=== PATIENT | female | born 1950 | race Caucasian/White ===

== ENCOUNTER 2017-01-27 10:54 | Inpatient (IN) | payer OTHER ==
[~2017-01-27] VITALS: Ht 149.9 cm; Wt 55.0 kg
[2017-01-27 11:17] LABS: ADD SCAN DIFF NO
[2017-01-27] MEDS ORDERED: ASPIRIN 81 MG TAB PO ONE (11:30)
[2017-01-27] MEDS ORDERED: NITROGLYCERIN (SL) 0.4 MG TAB SL ONE (11:30)
--- NOTE | 2017-01-27 11:32 | RADRPT ---
PROCEDURE: XR Chest 1 View. CLINICAL INDICATION: Chest pain TECHNIQUE: AP view of the chest was obtained. COMPARISON: None. FINDINGS: The cardiomediastinal silhouette is within normal limits. Subsegmental atelectasis is noted in the b ilateral lower lobes. No consolidations are identified. No pneumothorax is seen. The osseous struc tures are osteopenic, but appear intact. Stable focal, patchy sclerosis in the proximal right humer us is observed and may reflect an enchondroma or the sequelae of old bony infarct. IMPRESSION: Subsegmental atelectasis in the bilateral lower lobes. RPTAT: AA .Harish Rosales MD, MD Date Time Electronically viewed and signed by .Harish Rosales MD, on 01/27/2017 11:32 .P/
[2017-01-27 11:34] LABS: BASOPHILS % 0.4 % (0.0-2.0); EOSINOPHILS # 0.1 10^3/ul (0.0-0.5); EOSINOPHILS % 1.7 % (0.0-7.0); HEMATOCRIT 38.1 % (37.0-47.0); LYMPHOCYTES # 1.8 10^3/ul (0.8-2.9); LYMPHOCYTES % 35.2 % (15.0-51.0); MEAN CORPUSCULAR HEMOGLOBIN 32.3 pg (29.0-33.0); MEAN CORPUSCULAR HGB CONC 34.1 g/dl (32.0-37.0); MEAN CORPUSCULAR VOLUME 94.8 fl (82.0-101.0); MEAN PLATELET VOLUME 10.4 fl (7.4-10.4); MONOCYTE # 0.7 10^3/ul (0.3-0.9); MONOCYTES % 12.6 % (0.0-11.0); NEUTROPHIL # 2.6 10^3/ul (1.6-7.5); NEUTROPHILS % 49.9 % (39.0-77.0); PLATELET COUNT 157 10^3/UL (140-415); RED BLOOD COUNT 4.02 10^6/ul (4.20-5.40); RED CELL DISTRIBUTION WIDTH 12.4 % (11.5-14.5); WHITE BLOOD COUNT 5.2 10^3/ul (4.8-10.8)
[2017-01-27 11:38] VITALS: TEMP 98
[2017-01-27 11:52] LABS: PARTIAL THROMBOPLASTIN TIME 31.5 Sec (25.0-35.0); PROTIME 13.2 Sec (12.2-14.2)
[2017-01-27 12:01] LABS: CHLORIDE 99 mmol/L (97-110)
[2017-01-27 12:02] LABS: POTASSIUM 3.8 mmol/L (3.5-5.1); SODIUM 133 mmol/L (135-144)
[2017-01-27 12:04] LABS: CREATININE 0.73 mg/dl (0.44-1.00)
[2017-01-27 12:05] LABS: ANION GAP 14 (8-16); BLOOD UREA NITROGEN 12 mg/dl (7-20); CALCIUM 8.4 mg/dl (8.4-10.2); CARBON DIOXIDE 24 mmol/L (21-31); GLUCOSE 62 mg/dl (70-220)
[2017-01-27 12:20] LABS: B-TYPE NATRIURETIC PEPTIDE 75 PG/ML (0-125); TROPONIN-I < 0.012 ng/ml (0.00-0.12)
[2017-01-27] MEDS ORDERED: ATOR20TA38 PO (12:29)
[2017-01-27] MEDS ORDERED: SERT-165 PO (12:30)
[2017-01-27] MEDS ORDERED: IOHEXOL 100 ML ONE (13:55)
[2017-01-27] MEDS ORDERED: SOD CHLORIDE 0.9% 100 ML ONE (13:55)
--- NOTE | 2017-01-27 15:03 | RADRPT ---
PROCEDURE: CTA Chest, Abdomen and Pelvis with intravenous contrast CLINICAL INDICATION: Chest and leg pain, abdominal aortic aneurysm. TECHNIQUE: CTA of the chest, abdomen, and pelvis was performed on a multidetector scanner followin g the uncomplicated administration of 100 cc Omnipaque 350 IV contrast. Coronal, sagittal and 3-D images were obtained from the axial data set. One or more of the following dose reduction techniques were used: automated exposure control, adjustment of the mA and/or kV according to patient size, u se of iterative reconstruction technique. CTDI = 6.93 mGy. DLP = 484.26 mGy-cm. COMPARISON: None available FINDINGS: CTA chest: The heart size is borderline enlarged, without pericardial effusion. There is no thoracic aortic an eurysm or dissection. Visualized portions of the great vessels are patent without significant steno sis or occlusion. No pulmonary embolism is identified. There is no mediastinal, hilar, axillary or supraclavicular lymphadenopathy. There is minimal bibasilar atelectasis. No acute infiltrate, pleural effusion, pulmonary edema or p neumothorax is identified. The central tracheobronchial tree is clear. No pulmonary nodule or mass is identified. CTA abdomen and pelvis: There is no abdominal aortic aneurysm or dissection. Celiac artery, SMA, EVER and bilateral renal ar teries are patent without significant stenosis. Bilateral common iliac artery aneurysms are noted, with maximal diameters of 2.1 cm on the right and 3.8 cm on the left. Distally, the iliac arteries and visualized portions of the femoral arteries are patent without significant stenosis. Liver, gallbladder, biliary tree, pancreas, spleen, adrenal glands and kidneys are unremarkable. No urolithiasis or obstructive uropathy is identified. The stomach is partially collapsed, but appear s grossly unremarkable. No retroperitoneal or flo hepatis lymphadenopathy is identified. There is no bowel obstruction, free intraperitoneal air or abscess. The appendix is well visualized and normal. No diverticulosis, diverticulitis or colitis is identified. Urinary bladder, uterus a nd adnexa are grossly unremarkable. No pelvic mass, free fluid or lymphadenopathy is seen. The surrounding osseous structures are remarkable for degenerative spondylosis of the spine. No ost eolytic or osteoblastic lesion is detected. IMPRESSION: 1. Bilateral common iliac artery aneurysms are identified, with maximal diameters of 3.8 cm on the left and 2.1 cm on the right, without evidence for aneurysm rupture. 2. No aortic aneurysm or dissection is seen. 3. There is borderline cardiomegaly. 4. No mass, lymphadenopathy, or focal acute inflammatory process is identified. RPTAT: HDWR .Rafael Foster MD, Date Time Electronically viewed and signed by .Rafael Foster MD, on 01/27/2017 15:03 .R/
[2017-01-27] MEDS ORDERED: ACETAMINOPHEN 325 MG TAB PO PRN (18:00)
[2017-01-27] MEDS ORDERED: ONDANSETRON 4 MG INJ IV PRN (18:00)
--- NOTE | 2017-01-27 18:14 | HP ---
Date/Time of Note Date/Time of Note DATE: 01/27/17 TIME: 18:14 Assessment/Plan VTE Prophylaxis VTE Prophylaxis Intervention: SCD's Lines/[facility]ters [facility] Assessment/Plan Assessment/Plan 66-year-old female who presents with left chest/arm discomfort and recurrent syncopy 1 month now managed as follows: 1. Recurrent syncope 2. Chest pain rule out acute coronary syndrome 3. Known Bilateral common iliac artery aneurysms with maximal diameters of 3.8 cm on the left and 2.1 cm on the right, without evidence for aneurysm rupture. PLAN: * admit tele to r/o cardiac causes * MRI / MRA brain pending HPI/ROS Admit Date/Time Admit Date/Time 01/27/17 Hx of Present Illness This is a pleasant 66-year-old female who presents to emergency room after a syncopal episode while at the clinic. The patient reports that she has been having these episodes for about a month. The episodes status with numbness in her feet that travel up her body with some pressure like sensation in the amplitude of her left arm and she starts to see black spots she gets very dizzy and then she passes out for a few seconds. Luckily she has never falling and these episodes last all of about 5 seconds but she is lethargic for about 15-20 minutes after which she feels completely normal. She works as a farmworker field crop but does not associate this with fumes from chemicals. Episodes are not associated with any one emotional state. She has had episodes while happy, and even sometimes when she is doing nothing at all. Episodes seem to be lasting longer per family and her recovery time seems to be getting longer as well. Had outpatient workup has included thyroid screening as well as a urinalysis. She has no history of strokes or heart attacks. There is no family history of similar. She has never fallen and hit her head. The only medication she takes on a regular basis is Lipitor. ROS ROS: CONSTITUTIONAL: denies fever, chills, weight loss, weight gain HEENT: denies headaches, any sore throat or rhinorrhea. Eyes: No double or blurred vision or eye pain. CARDIOVASCULAR: no chest discomfort, chest pain, irregular rhythm, tachycardia or diaphoresis. RESPIRATORY: denies cough or shortness of breath or wheezing. GASTROINTESTINAL: The patient denies any nausea, vomiting, diarrhea or abdominal pain. GENITOURINARY: denies dysuria, frequency, urgency or hematuria. MUSCULOSKELETAL: also denies myalgias, arthralgias or edema. SKIN: denies rash or jaundice NEUROLOGIC: denies weakness, dizziness, focal neurological change or headache. PSYCHIATRIC: denies history of depression in the past, any suicidal ideation. substance abuse. ENDOCRINE: denies polyuria, polydipsia or hot or cold intolerance. HEMATOLOGIC: denies history of easy bruising, anemia or eczema. PMH/Family/Social Past Medical History * Patient has known iliac aneurysms for the last 2-1/2 months Medical History: high cholesterol Past Surgical History * section 4 Family History Significant Family History: no pertinent family hx, other (No history of premature coronary artery disease, or hypertrophic cardiomyopathy) Social History Alcohol Use: none Smoking Status: Never smoker Drug Use: none Exam/Review of Systems Vital Signs Vitals Vital Signs Date Time Temp Pulse Resp B/P Pulse Ox O2 Delivery O2 Flow Rate FiO2 01/27/17 17:58 65 16 118/100 Room Air 01/27/17 16:02 100 01/27/17 11:41 98.8 01/27/17 11:06 2 Exam Constitutional: alert, oriented, No distress Psych: nl mood/affect Head: atraumatic, normocephalic Eyes: PERRL ENMT: mucosa pink and moist Neck: non-tender, supple, No jvd (However she does have some hyperactivity in the base of her neck on the right side) Respiratory: clear to auscultation, normal air movement, No crackles/rales, No labored breathing, No wheezing Cardiovascular: other (Systolic blood pressure was noted to be slightly low in the 70s on physical exam), regular rate and rhythm, No murmurs/extra sounds Gastrointestinal: bowel sounds, non-tender, soft, surgical scars (Well healed and dry) Genitourinary - Female: other (Deferred) Musculoskeletal: nl extremities to inspection, No joint tenderness, No muscle weakness Extremities: normal pulses, No edema Neurological: nl mental status, nl speech, nl strength, No focal weakness Skin: No rash or lesions Labs Result Diagram: 01/27/17 1100 01/27/17 1100 Procedures Procedures Laboratory Tests Test 01/27/17 11:00 White Blood Count 5.210^3/ul Red Blood Count 4.0210^6/ul Hemoglobin 13.0g/dl Hematocrit 38.1% Mean Corpuscular Volume 94.8fl Mean Corpuscular Hemoglobin 32.3pg Mean Corpuscular Hemoglobin Concent 34.1g/dl Red Cell Distribution Width 12.4% Platelet Count 87428^3/UL Mean Platelet Volume 10.4fl Neutrophils % 49.9% Lymphocytes % 35.2% Monocytes % 12.6% Eosinophils % 1.7% Basophils % 0.4% Nucleated Red Blood Cells % 0.0/100WBC Neutrophils # 2.610^3/ul Lymphocytes # 1.810^3/ul Monocytes # 0.710^3/ul Eosinophils # 0.110^3/ul Basophils # 0.010^3/ul Nucleated Red Blood Cells # 0.010^3/ul Prothrombin Time 13.2Sec Prothrombin Time Ratio 1.0 INR International Normalized Ratio 1.00 Activated Partial Thromboplast Time 31.5Sec Sodium Level 133mmol/L Potassium Level 3.8mmol/L Chloride Level 99mmol/L Carbon Dioxide Level 24mmol/L Anion Gap 14 Blood Urea Nitrogen 12mg/dl Creatinine 0.73mg/dl Glucose Level 62mg/dl Calcium Level 8.4mg/dl Troponin I < 0.012ng/ml B-Type Natriuretic Peptide 75PG/ML ER INTERVENTIONS Medications (Trade) Dose Ordered Sig/Kalpesh Route PRN Reason Start Time Stop Time Status Last Admin Dose Admin Aspirin (Aspirin) 324 mg ONCE ONCE PO 01/27/17 11:30 01/27/17 11:31 DC 01/27/17 11:12 Nitroglycerin (Nitroglycerin (Sl Tab) 0.4 Mg) 1 tab ONCE ONCE SL 01/27/17 11:30 01/27/17 11:31 DC IV Flush 10 ml 10 ml STK-MED ONCE .ROUTE 01/27/17 13:55 01/27/17 13:56 DC 01/27/17 14:49 Sodium Chloride 100 ml @ ud STK-MED ONCE .ROUTE 01/27/17 13:55 01/27/17 13:56 DC 01/27/17 14:49 Iohexol (Omnipaque) 100 ml @ ud STK-MED ONCE .ROUTE 01/27/17 13:55 01/27/17 13:56 DC 01/27/17 14:50 Ondansetron HCl (Zofran Inj) 4 mg ER BRIDGE PRN IV NAUSEA AND/OR VOMITING 01/27/17 18:00 01/28/17 17:59 Acetaminophen (Tylenol Tab) 650 mg ER BRIDGE PRN PO MILD PAIN/FEVER 01/27/17 18:00 01/28/17 17:59 PROCEDURE: CTA Chest, Abdomen and Pelvis with intravenous contrast CLINICAL INDICATION: Chest and leg pain, abdominal aortic aneurysm. TECHNIQUE: CTA of the chest, abdomen, and pelvis was performed on a multidetector scanner following the uncomplicated administration of 100 cc Omnipaque 350 IV contrast. Coronal, sagittal and 3-D images were obtained from the axial data set. One or more of the following dose reduction techniques were used: automated exposure control, adjustment of the mA and/or kV according to patient size, use of iterative reconstruction technique. CTDI = 6.93 mGy. DLP = 484.26 mGy-cm. COMPARISON: None available FINDINGS: CTA chest: The heart size is borderline enlarged, without pericardial effusion. There is no thoracic aortic aneurysm or dissection. Visualized portions of the great vessels are patent without significant stenosis or occlusion. No pulmonary embolism is identified. There is no mediastinal, hilar, axillary or supraclavicular lymphadenopathy. There is minimal bibasilar atelectasis. No acute infiltrate, pleural effusion, pulmonary edema or pneumothorax is identified. The central tracheobronchial tree is clear. No pulmonary nodule or mass is identified. CTA abdomen and pelvis: There is no abdominal aortic aneurysm or dissection. Celiac artery, SMA, EVER and bilateral renal arteries are patent without significant stenosis. Bilateral common iliac artery aneurysms are noted, with maximal diameters of 2.1 cm on the right and 3.8 cm on the left. Distally, the iliac arteries and visualized portions of the femoral arteries are patent without significant stenosis. Liver, gallbladder, biliary tree, pancreas, spleen, adrenal glands and kidneys are unremarkable. No urolithiasis or obstructive uropathy is identified. The stomach is partially collapsed, but appears grossly unremarkable. No retroperitoneal or flo hepatis lymphadenopathy is identified. There is no bowel obstruction, free intraperitoneal air or abscess. The appendix is well visualized and normal. No diverticulosis, diverticulitis or colitis is identified. Urinary bladder, uterus and adnexa are grossly unremarkable. No pelvic mass, free fluid or lymphadenopathy is seen. The surrounding osseous structures are remarkable for degenerative spondylosis of the spine. No osteolytic or osteoblastic lesion is detected. IMPRESSION: 1. Bilateral common iliac artery aneurysms are identified, with maximal diameters of 3.8 cm on the left and 2.1 cm on the right, without evidence for aneurysm rupture. 2. No aortic aneurysm or dissection is seen. 3. There is borderline cardiomegaly. 4. No mass, lymphadenopathy, or focal acute inflammatory process is identified. RPTAT: HDWR .Rafael Foster MD, MD Date Time Electronically viewed and signed by .Rafael Foster MD, MD on 01/27/2017 15: 03 .R/ CC: ALDO BOLANOS DO PROCEDURE: XR Chest 1 View. CLINICAL INDICATION: Chest pain TECHNIQUE: AP view of the chest was obtained. COMPARISON: None. FINDINGS: The cardiomediastinal silhouette is within normal limits. Subsegmental atelectasis is noted in the bilateral lower lobes. No consolidations are identified. No pneumothorax is seen. The osseous structures are osteopenic, but appear intact. Stable focal, patchy sclerosis in the proximal right humerus is observed and may reflect an enchondroma or the sequelae of old bony infarct. IMPRESSION: Subsegmental atelectasis in the bilateral lower lobes. RPTAT: AA .Harish Rosales MD, MD Date Time Electronically viewed and signed by .Harish Rosales MD, MD on 01/27/2017 11:32 .P/ CC: ROMMEL FLORES DO I reviewed EKG Rate: Sinus bradycardia rate of 54 Rhythm: sinus Note: No ST elevation or depressions noted concerning for acute ischemic event. SANYA JEAN BAPTISTE January 27, 2017 18:14
[2017-01-27 18:56] VITALS: PULSE 89
--- NOTE | 2017-01-27 18:59 | ERA ---
ER Documentation Chief Complaint Date/Time DATE: 01/27/17 TIME: 18:51 Chief Complaint CHEST PAIN WHILE AT CLINIC. NO SOB. NO DIAPHORESIS.12 LEAD NEGATIVE IN EMS HPI 66-year-old female with acute chest pain on and off today described as sharp left-sided chest pain that does not radiate, she also has a burning sensation in her legs that comes and goes at times. Also reports that she has been having increasing episodes of syncope daily for the last month. She has a history of an abdominal aneurysm. ROS All systems reviewed and are negative except as per history of present illness. Medications Home Meds Reported Medications Sertraline Hcl* (Sertraline Hcl*) 100 Mg Tablet, 100 MG PO DAILY, #30 TAB 01/27/17 Atorvastatin Calcium* (Atorvastatin Calcium*) 20 Mg Tablet, 20 MG PO QHS, #30 TAB 01/27/17 Allergies Allergies: Coded Allergies: No Known Allergy (Unverified , 05/26/13) PMhx/Soc Hx Cardiac Disorders: Yes (HIGH CHOLESTEROL, AAA) Hx Psychiatric Problems: No Hx Alcohol Use: No Hx Substance Use: No Hx Tobacco Use: No Smoking Status: Never smoker Physical Exam Vitals Vital Signs Date Time Temp Pulse Resp B/P Pulse Ox O2 Delivery O2 Flow Rate FiO2 01/27/17 17:58 65 16 118/100 Room Air 01/27/17 16:02 58 20 113/67 100 Room Air 01/27/17 11:41 98.8 55 20 111/78 98 01/27/17 11:38 98.0 58 20 120/79 99 Room Air 01/27/17 11:11 98.8 56 20 111/78 98 01/27/17 11:06 Nasal Cannula 2 Physical Exam Const: [] Mild distress Head: Atraumatic Eyes: Normal Conjunctiva ENT: Normal External Ears, Nose and Mouth. Neck: Full range of motion..~ No meningismus. Resp: Clear to auscultation bilaterally Cardio: Regular rate and rhythm, no murmurs Abd: Soft, non tender, non distended. Normal bowel sounds. Palpable pulsatile flow of midabdomen with aorta measuring approximately 2 cm. Skin: No petechiae or rashes Back: No midline or flank tenderness Ext: No cyanosis, or edema, distal pulses intact all 4 extremities Neur: Awake and alert and oriented 3, no focal deficits, cranial nerves II through XII intact, no cerebellar deficits, normal gait Psych: Normal Mood and Affect Result Diagram: 01/27/17 1100 01/27/17 1100 Results 24 hrs Laboratory Tests Test 01/27/17 11:00 White Blood Count 5.210^3/ul Red Blood Count 4.0210^6/ul Hemoglobin 13.0g/dl Hematocrit 38.1% Mean Corpuscular Volume 94.8fl Mean Corpuscular Hemoglobin 32.3pg Mean Corpuscular Hemoglobin Concent 34.1g/dl Red Cell Distribution Width 12.4% Platelet Count 09445^3/UL Mean Platelet Volume 10.4fl Neutrophils % 49.9% Lymphocytes % 35.2% Monocytes % 12.6% Eosinophils % 1.7% Basophils % 0.4% Nucleated Red Blood Cells % 0.0/100WBC Neutrophils # 2.610^3/ul Lymphocytes # 1.810^3/ul Monocytes # 0.710^3/ul Eosinophils # 0.110^3/ul Basophils # 0.010^3/ul Nucleated Red Blood Cells # 0.010^3/ul Prothrombin Time 13.2Sec Prothrombin Time Ratio 1.0 INR International Normalized Ratio 1.00 Activated Partial Thromboplast Time 31.5Sec Sodium Level 133mmol/L Potassium Level 3.8mmol/L Chloride Level 99mmol/L Carbon Dioxide Level 24mmol/L Anion Gap 14 Blood Urea Nitrogen 12mg/dl Creatinine 0.73mg/dl Glucose Level 62mg/dl Calcium Level 8.4mg/dl Troponin I < 0.012ng/ml B-Type Natriuretic Peptide 75PG/ML Current Medications Medications (Trade) Dose Ordered Sig/Kalpesh Route PRN Reason Start Time Stop Time Status Last Admin Dose Admin Aspirin (Aspirin) 324 mg ONCE ONCE PO 01/27/17 11:30 01/27/17 11:31 DC 01/27/17 11:12 Nitroglycerin (Nitroglycerin (Sl Tab) 0.4 Mg) 1 tab ONCE ONCE SL 01/27/17 11:30 01/27/17 11:31 DC IV Flush 10 ml 10 ml STK-MED ONCE .ROUTE 01/27/17 13:55 01/27/17 13:56 DC 01/27/17 14:49 Sodium Chloride 100 ml @ ud STK-MED ONCE .ROUTE 01/27/17 13:55 01/27/17 13:56 DC 01/27/17 14:49 [facility]hex[facility] (Omnipaque) [facility] ONCE .ROUTE 01/27/17 13:55 01/27/17 13:56 DC 01/27/17 14:50 Procedures/MDM Concerning symptoms of new chest pain with recurring syncope and near syncope with history of abdominal aneurysm. Initial concern was for dissection causing symptoms in the heart as well as the bilateral lower extremities. Patient is not currently dissecting and aneurysms are actually in the common iliacs. No signs of cardiac ischemia currently. Patient was given aspirin and nitroglycerin with relief of pain. No current burning sensation in the legs. At this portion of the workup has been so far negative troponins with be trended with progressive symptoms I think it is prudent to order her outpatient MRI and MRA that she came with a prescription for. Also place an order for an echocardiogram. Had a mildly low sugar and was able to eat entire meal. Also has very mild hyponatremia. She has persistent bradycardia and is currently stable in the emergency room. She is being admitted to telemetry. She was capitated to [facility] however they stated that they are currently full and did not have beds. She is being admitted by Dr. Yoder who saw the patient at bedside. EKG interpretation: Sinus bradycardia rate of 54, normal axis, no ST or T-wave changes concerning for acute ischemia groundwater monitoring technician interpretation: Persistent sinus bradycardia without arrhythmia Chest x-ray interpretation: I see no acute process. Some tortuosity of aorta without widened mediastinum, no pulmonary edema, no pneumothorax, no fractures CT angios chest and abdomen interpretation: Bilateral common iliac artery aneurysms without dissection or embolism. No pneumothorax, no fractures. Departure Diagnosis: Primary Impression: Chest pain Additional Impressions: Syncope Common iliac aneurysm Hyponatremia Condition: Stable ALDO BOLANOS DO January 27, 2017 18:59
[2017-01-27 19:00] VITALS: BP 103/67; PULSE 71; RESP 16; Ht 149.9 cm; Wt 55.0 kg
[2017-01-27 20:00] VITALS: BP 112/64; PULSE 54; PULSE 66; RESP 18
[2017-01-27 20:06] VITALS: BP 112/64; RESP 19
[2017-01-27 20:18] LABS: CREATINE KINASE 41 IU/L (23-200)
[2017-01-27 20:32] LABS: CK-MB 0.68 ng/ml (0.0-2.4)
[2017-01-27 20:36] LABS: TROPONIN-I < 0.012 ng/ml (0.00-0.12)
[2017-01-27] MEDS: SOD CHLORIDE 0.9% 1,000 ML IV SCH (20:43)
[2017-01-27] MEDS ORDERED: ATORVASTATIN 20 MG TAB PO SCH (21:00)
--- NOTE | 2017-01-27 23:16 | RADRPT ---
PROCEDURE: MRI Brain with and without contrast. CLINICAL INDICATION: Chest pain, syncope TECHNIQUE: Routine MRI of the brain performed with postcontrast imaging. CONTRAST: 10 mL of Magnevist administered intravenously without adverse event. COMPARISON: None FINDINGS: Diffusion: No evidence of acute infarct, recent ischemia, or recent ictal focus. Hemorrhage: No evidence of focal hematoma or subarachnoid hemorrhage. No evidence for remote blood d egradation products. Mass effect/midline shift: None. Enhancement: No areas of abnormal enhancement are seen. Parenchymal volume: Mild central parenchymal volume loss is evident. Ventricular system: Concordant with the degree of parenchymal volume. Parenchymal signal changes: Nonspecific small scattered areas of T2 and FLAIR signal hyperintensity measuring a few millimeters are seen in the supratentorial white matter most commonly due to chronic mild microvascular ischemic changes. Differential considerations include sequelae of migraines; annabelle or parenchymal injury from infectious or inflammatory/demyelinating process; vasculopathy. Vasculature: Appropriate flow voids suggesting patency of the central arterial system and visualize d dural venous sinuses. Paranasal sinuses: Mild mucosal thickening seen within the ethmoid air cells. Mastoid air cells: Clear. Calvarium: Within normal limits. Extracranial soft tissues: Within normal limits. IMPRESSION: No evidence of diffusion signal abnormalities to suggest acute infarct, recent ischemia, or recent i ctal focus. No abnormal areas of enhancement. Nonspecific small scattered areas of T2 and FLAIR signal hyperintensity measuring a few millimeters are seen in the supratentorial white matter most commonly due to chronic mild microvascular ischemic changes. Differential considerations include sequelae of migraines; prior parenchymal injury from i nfectious or inflammatory/demyelinating process; vasculopathy. RPTAT: AADD .Dov Ambrosio MD, Date Time Electronically viewed and signed by .Dov Ambrosio MD, MD on 01/27/2017 23:15 .B/
--- NOTE | 2017-01-27 23:18 | RADRPT ---
PROCEDURE: MRA Brain without contrast. CLINICAL INDICATION: Syncope, recurrent syncopal episode TECHNIQUE: MR angiography of the brain was performed without intravenous contrast. Multiplanar re constructions, three-dimensional reconstructions, as well as maximal intensity projection images are produced and reviewed. COMPARISON: None FINDINGS: Internal carotid arteries: Patent and normal in caliber. Anterior cerebral arteries: A1 segments are codominant. Anterior communicating artery is visualized. Visualized A2 and A3 distribution of the anterior cerebral arteries are patent. Middle cerebral arteries: Both middle cerebral arteries as well as there branch vessels are patent and symmetric in appearance . Moderate right and small left posterior communicating arteries are present. Vertebral - basilar system: Both vertebral arteries are patent. Left-sided dominance is present. Basilar artery is patent. Posterior cerebral arteries: Patent bilaterally. Right P1 segment is hypoplastic. IMPRESSION: Normal MRA of the brain. No aneurysm, arteriovenous malformation, or abrupt vessel cutoff is identified. RPTAT: AADD .Dov Ambrosio MD, MD Date Time Electronically viewed and signed by .Dov Ambrosio MD, on 01/27/2017 23:18 .B/
[2017-01-27] MEDS: SERTRALINE 100 MG TAB PO SCH (23:24)
--- NOTE | 2017-01-27 23:24 | RADRPT ---
PROCEDURE: MRA Neck without contrast. CLINICAL INDICATION: Chest pain, syncope TECHNIQUE: MRA of the neck was performed using time of flight technique without intravenous contra st. Maximal intensity projection images and three-dimensional reconstruction images are producing r eviewed. Degrees of stenosis are determined by direct reference to the distal normal vessel diameter as per NASCET criteria. COMPARISON: No prior studies are available for comparison. FINDINGS: Examination is degraded due to patient motion. Aortic arch: The origins of the great vessels of the neck are patent. Right common carotid artery: Patent. Right internal carotid artery: Patent Right external carotid artery: Patent with normal branching. Left common carotid artery: Patent. Left internal carotid artery: Patent Left external carotid artery: Patent with normal branching. Right vertebral artery: Patent. Left vertebral artery: Patent. Vertebral dominance pattern: Moderate left-sided dominance. IMPRESSION: Examination is partially degraded due to patient motion. No evidence of stenosis within the extracranial circulation. Recommended carotid ultrasound for conf irmation. RPTAT: AADD .Dov Ambrosio MD, MD Date Time Electronically viewed and signed by .Dov Ambrosio MD, on 01/27/2017 23:23 .B/
[2017-01-28] VITALS (13 sets, daily range): BP systolic 101–122; BP diastolic 56–77; PULSE 50–69; RESP 16–20
--- NOTE | 2017-01-28 00:47 | CONS ---
DATE OF ADMISSION: 01/27/2017 DATE OF CONSULTATION: 01/27/2017 TYPE OF CONSULTATION: Neurological. Thank you, Dr. Yoder, for your kind referral for evaluation of syncope. HISTORY OF PRESENT ILLNESS: The patient is a 66-year-old lady with essentially no past medical hist ory with exception of known iliac aneurysm, awaiting surgery, as well as dyslipidemia and history of migraines, presented with multiple syncopal episodes. She stated that in last 2 weeks she has been fainting at least 1 or 2 times a day, is getting progressively worse. She gets a short-lasting pre syncopal sensation of weakness in the legs, burning sensation, starts in the toes and ____ ascends t hrough the body, darkening of vision, and then she faints. She has multiple episodes of witnessed f aints, and usually her faints are relatively short lasting and followed by prolonged sensation of ti redness. She is limp when she is unconscious, and pale. No seizure activity, no posturing, no inco ntinence, no tongue bites. No new medications. According to the family members present at bedside, there are no provoking fact ors, is not positional, not orthostatic. At times happens when she is sitting. Not related to hung er or satiety. PAST MEDICAL HISTORY: As above. MEDICATIONS: 1. Atorvastatin. 2. Zoloft 100 mg. She stated that she was placed on Zoloft because of frequent headaches and migraine headaches and be en taking it for a long time already and has essentially no headaches, though after the fainting epi sode, she does experience mild headache. I forgot to mention that patient has history of fainting usually related with low blood pressure or drawing blood, but it's very remote and intermittent. The patient had EKG done here, 54 beats per minute, sinus rhythm. The patient's labs show essentially normal CBC. Comprehensive metabolic panel within normal limits. Glucose was 62 though. BUN 12, creatinine 0.73. CK within normal limits as well as troponins. P T, PTT are normal. She had CT angiogram of the chest, abdomen and pelvis showing bilateral common iliac artery aneurysm , maximum 3.8 on the left, 2.1 cm on the right with no evidence of rupture, and chest x-ray was nega tive, just bibasilar ____ atelectasis. The patient was taken for the MRA of the neck, brain and MRI of the brain. Also echocardiogram was requested. She is on telemetry already. SOCIAL HISTORY: No alcohol, tobacco, drug use. FAMILY HISTORY: Not contributory. REVIEW OF SYSTEMS: All pertinent positives included in the above history of present illness. PHYSICAL EXAMINATION: VITAL SIGNS: Temperature 97.6, pulse 66, respiration 19, blood pressure 112/64. GENERAL: Not in acute distress, lying in bed. HEENT: Normocephalic, atraumatic head. NECK: No carotid bruits. No thyromegaly. LUNGS: Clear to auscultation bilaterally. CARDIAC: Normal cardiac rhythm and sounds. ABDOMEN: Soft, nontender. EXTREMITIES: No cyanosis, clubbing or edema. NEUROLOGIC: She is awake, alert and oriented x3 with fluent speech. Cranial nerve examination show s intact visual ramos bilaterally. Pupils reactive to light from 4 to 2 mm bilaterally. Extraocul ar movements intact without nystagmus. Symmetrical face. Preserved facial strength and sensation. Tongue is in midline. Palate elevates symmetrically. Motor strength examination seemed to be inta ct in all extremities. Normal bulk, tone. Sensory examination intact to light touch, pain and vibr atory sense. Deep tendon reflexes 2+ upper extremities, 3+ lower extremities. Downgoing toes bilat erally. Coordination preserved on [id number] testing. No dysmetria or tremor. Gait was not assessed. IMPRESSION: Multiple syncopal episodes in last 2 weeks, not positional, preceded with short-lasting presyncope. I would think that they are cardiogenic in etiology. She has some bradycardia and may be was related to heart rhythm abnormality. In any case, workup for cardiac etiology of syncope is underway. Regardless, she is on telemetry. All possible dysrhythmias would be picked up. Imaging of the brain and vasculature of the brain and neck was also requested by primary MD. I do not think that episodes reflect seizures. I do not think we need any further workup for seizures. Thank you very much for this interesting consultation. Will continue to follow patient and results of her diagnostic studies. Dictated By: ALEXUS ROOT/LATONIA Conf#: [id number] DID#: [id number]
[2017-01-28 01:41] LABS: BARBITURATES NEGATIVE (NEGATIVE); BENZODIAZEPINES NEGATIVE (NEGATIVE); CANNABINOIDS NEGATIVE (NEGATIVE); COCAINE NEGATIVE (NEGATIVE); OPIATES NEGATIVE (NEGATIVE)
[2017-01-28 01:57] LABS: ADD UMIC NO; URINE BILIRUBIN (Dip) NEGATIVE (NEGATIVE); URINE BLOOD (Dip) NEGATIVE (NEGATIVE); URINE COLOR LT. YELLOW (YELLOW); URINE GLUCOSE (Dip) NEGATIVE (NEGATIVE); URINE KETONES (Dip) NEGATIVE (NEGATIVE); URINE LEUKOCYTE ESTERASE (Dip) NEGATIVE (NEGATIVE); URINE NITRITE (Dip) NEGATIVE (NEGATIVE); URINE TOTAL PROTEIN (Dip) NEGATIVE (NEGATIVE); URINE UROBILINOGEN (Dip) 0.2 E.U./dL (0.1-1.0)
[2017-01-28] MEDS: SOD CHLORIDE 0.9% 1,000 ML IV SCH ×5 (04:00→21:20)
[2017-01-28 07:28] LABS: ADD SCAN DIFF NO
[2017-01-28 07:40] LABS: BASOPHILS % 0.2 % (0.0-2.0); EOSINOPHILS # 0.2 10^3/ul (0.0-0.5); EOSINOPHILS % 5.2 % (0.0-7.0); HEMATOCRIT 39.5 % (37.0-47.0); HEMOGLOBIN 13.7 g/dl (12.0-16.0); LYMPHOCYTES # 1.7 10^3/ul (0.8-2.9); LYMPHOCYTES % 37.6 % (15.0-51.0); MEAN CORPUSCULAR HEMOGLOBIN 32.5 pg (29.0-33.0); MEAN CORPUSCULAR HGB CONC 34.7 g/dl (32.0-37.0); MEAN CORPUSCULAR VOLUME 93.8 fl (82.0-101.0); MEAN PLATELET VOLUME 10.6 fl (7.4-10.4); MONOCYTE # 0.4 10^3/ul (0.3-0.9); NEUTROPHIL # 2.1 10^3/ul (1.6-7.5); NEUTROPHILS % 46.8 % (39.0-77.0); PLATELET COUNT 163 10^3/UL (140-415); RED BLOOD COUNT 4.21 10^6/ul (4.20-5.40); WHITE BLOOD COUNT 4.4 10^3/ul (4.8-10.8)
[2017-01-28 08:03] LABS: CALCIUM 8.8 mg/dl (8.4-10.2); CHOL/HDL RATIO 3.6 RATIO; CREATININE 0.73 mg/dl (0.44-1.00); POTASSIUM 4.4 mmol/L (3.5-5.1)
[2017-01-28 08:22] LABS: THYROID STIMULATING HORMONE 1.17 MIU/L (0.465-4.680)
--- NOTE | 2017-01-28 14:12 | PN ---
Date/Time of Note Date/Time of Note DATE: 01/28/17 TIME: 14:11 Assessment/Plan VTE Prophylaxis VTE Prophylaxis Intervention: SCD's Lines/Catheters IV Catheter Type (from Nrs): Peripheral IV Assessment/Plan Assessment/Plan 66-year-old female who presents with left chest/arm discomfort and recurrent syncopy 1 month now managed as follows: 1. Recurrent syncope likely associated with orthostasis based on vital signs * However the bradycardia also somewhat concerning * And no obvious source of the stasis is evident except SSRI therapy which patient has been on for at least 3 years 2. Chest pain : resolved. 3. Known Bilateral common iliac artery aneurysms with maximal diameters of 3.8 cm on the left and 2.1 cm on the right, without evidence for aneurysm rupture. 4. Chronic depression stable on Zoloft PLAN: * Continue telemetry monitoring and inpatient care for now * Review MRI /MRA results with neurologist * Telemetry cardiology review, echo findings. See what cardiology thinks about bradycardia. * Continue supportive care Subjective 24 Hr Interval Summary Free Text/Dictation Patient seen and evaluated. She feels okay at this time however she says she had an episode earlier after she had gotten out of bed to freshen up that resolved after she was put back in bed and given IV fluids. She has remained in normal sinus rhythm on the telemetry, however she did have bradycardia as low as 47 at some point during the night. Exam/Review of Systems Vital Signs Vitals Vital Signs Date Time Temp Pulse Resp B/P Pulse Ox O2 Delivery O2 Flow Rate FiO2 01/28/17 12:00 69 01/28/17 11:22 98.0 16 109/63 99 01/27/17 20:00 Room Air 01/27/17 11:06 2 Intake and Output 01/27/17 01/27/17 01/28/17 14:59 22:59 06:59 Intake Total 1275 ml Balance 1275 ml Exam Constitutional: alert, oriented, No distress Psych: nl mood/affect Head: atraumatic, normocephalic Eyes: PERRL ENMT: mucosa pink and moist Neck: non-tender, supple, No jvd (However she does have some hyperactivity in the base of her neck on the right side) Respiratory: clear to auscultation, normal air movement, No crackles/rales, No labored breathing, No wheezing Cardiovascular: regular rate and rhythm, No murmurs/extra sounds Gastrointestinal: bowel sounds, non-tender, soft, surgical scars (Well healed and dry) Genitourinary - Female: other (Deferred) Musculoskeletal: nl extremities to inspection, No joint tenderness, No muscle weakness Extremities: normal pulses, No edema Neurological: nl mental status, nl speech, nl strength, No focal weakness Skin: No rash or lesions Results Result Diagram: 01/28/17 0612 01/28/17 0642 Results 24 hrs Laboratory Tests Test 01/27/17 19:41 01/28/17 00:40 01/28/17 01:45 01/28/17 06:12 Creatine Kinase 41 Creatine Kinase Index 1.7 Creatinine Kinase MB (Mass) 0.68 Troponin I < 0.012 < 0.012 Urine Color LT. YELLOW Urine Clarity CLEAR Urine pH 7.0 Urine Specific [place] <1.005 L Urine Ketones NEGATIVE Urine Nitrite NEGATIVE Urine Bilirubin NEGATIVE Urine Urobilinogen 0.2 E.U./dL Urine Leukocyte Esterase NEGATIVE Urine Hemoglobin NEGATIVE Urine Glucose NEGATIVE Urine Total Protein NEGATIVE Urine Opiates Screen NEGATIVE Urine Barbiturates NEGATIVE Urine Amphetamines Screen NEGATIVE Urine Benzodiazepines Screen NEGATIVE Urine Cocaine Screen NEGATIVE Urine Cannabinoids NEGATIVE White Blood Count 4.4 L Red Blood Count 4.21 Hemoglobin 13.7 Hematocrit 39.5 Mean Corpuscular Volume 93.8 Mean Corpuscular Hemoglobin 32.5 Mean Corpuscular Hemoglobin Concent 34.7 Red Cell Distribution Width 12.0 Platelet Count 163 Mean Platelet Volume 10.6 H Neutrophils % 46.8 Lymphocytes % 37.6 Monocytes % 10.0 Eosinophils % 5.2 Basophils % 0.2 Nucleated Red Blood Cells % 0.0 Neutrophils # 2.1 Lymphocytes # 1.7 Monocytes # 0.4 Eosinophils # 0.2 Basophils # 0.0 Nucleated Red Blood Cells # 0.0 Test 01/28/17 06:42 Sodium Level 135 Potassium Level 4.4 Chloride Level 106 Carbon Dioxide Level 25 Anion Gap 8 Blood Urea Nitrogen 10 Creatinine 0.73 Glucose Level 94 Hemoglobin A1c 5.0 Calcium Level 8.8 Magnesium Level 2.0 Triglycerides Level 70 Cholesterol Level 161 LDL Cholesterol, Calculated 103 HDL Cholesterol 44 Cholesterol/HDL Ratio 3.6 Thyroid Stimulating Hormone (TSH) 1.170 Medications Medications Current Medications Sodium Chloride (NS) 1,000 ml @ 125 mls/hr Q8H IV Last administered on 13:20; Admin Dose 125 MLS/HR; Start 01/27/17 at 20:00 Sertraline HCl (Zoloft) 100 mg HS PO Last administered on 01/27/17 23:24; Admin Dose 100 MG; Start 01/27/17 at 22:00 Atorvastatin Calcium (Lipitor) 10 mg HS PO ; Start 01/28/17 at 21:00 Procedures Procedures PROCEDURE: MRA Brain without contrast. CLINICAL INDICATION: Syncope, recurrent syncopal episode TECHNIQUE: MR angiography of the brain was performed without intravenous contrast. Multiplanar reconstructions, three-dimensional reconstructions, as well as maximal intensity projection images are produced and reviewed. COMPARISON: None FINDINGS: Internal carotid arteries: Patent and normal in caliber. Anterior cerebral arteries: A1 segments are codominant. Anterior communicating artery is visualized. Visualized A2 and A3 distribution of the anterior cerebral arteries are patent. Middle cerebral arteries: Both middle cerebral arteries as well as there branch vessels are patent and symmetric in appearance. Moderate right and small left posterior communicating arteries are present. Vertebral - basilar system: Both vertebral arteries are patent. Left-sided dominance is present. Basilar artery is patent. Posterior cerebral arteries: Patent bilaterally. Right P1 segment is hypoplastic. IMPRESSION: Normal MRA of the brain. No aneurysm, arteriovenous malformation, or abrupt vessel cutoff is identified. RPTAT: AADD .Dov Ambrosio MD, MD Date Time Electronically viewed and signed by .Dov Ambrosio MD, on 01/27/2017 23:18 .B/ PROCEDURE: MRA Neck without contrast. CLINICAL INDICATION: Chest pain, syncope TECHNIQUE: MRA of the neck was performed using time of flight technique without intravenous contrast. Maximal intensity projection images and three- dimensional reconstruction images are producing reviewed. Degrees of stenosis are determined by direct reference to the distal normal vessel diameter as per NASCET criteria. COMPARISON: No prior studies are available for comparison. FINDINGS: Examination is degraded due to patient motion. Aortic arch: The origins of the great vessels of the neck are patent. Right common carotid artery: Patent. Right internal carotid artery: Patent Right external carotid artery: Patent with normal branching. Left common carotid artery: Patent. Left internal carotid artery: Patent Left external carotid artery: Patent with normal branching. Right vertebral artery: Patent. Left vertebral artery: Patent. Vertebral dominance pattern: Moderate left-sided dominance. IMPRESSION: Examination is partially degraded due to patient motion. No evidence of stenosis within the extracranial circulation. Recommended carotid ultrasound for confirmation. RPTAT: AADD .Dov Ambrosio MD, MD Date Time Electronically viewed and signed by .Dov Ambrosio MD, MD on 01/27/2017 23:23 .B/ CC: SANYA JEAN BAPTISTE PROCEDURE: MRI Brain with and without contrast. CLINICAL INDICATION: Chest pain, syncope TECHNIQUE: Routine MRI of the brain performed with postcontrast imaging. CONTRAST: 10 mL of Magne[place] administered intravenously without adverse event. COMPARISON: None FINDINGS: Diffusion: No evidence of acute infarct, recent ischemia, or recent ictal focus. Hemorrhage: No evidence of focal hematoma or subarachnoid hemorrhage. No evidence for remote blood degradation products. Mass effect/midline shift: None. Enhancement: No areas of abnormal enhancement are seen. Parenchymal volume: Mild central parenchymal volume loss is evident. Ventricular system: Concordant with the degree of parenchymal volume. Parenchymal signal changes: Nonspecific small scattered areas of T2 and FLAIR signal hyperintensity measuring a few millimeters are seen in the supratentorial white matter most commonly due to chronic mild microvascular ischemic changes. Differential considerations include sequelae of migraines; prior parenchymal injury from infectious or inflammatory/demyelinating process; vasculopathy. Vasculature: Appropriate flow voids suggesting patency of the central arterial system and visualized dural venous sinuses. Paranasal sinuses: Mild mucosal thickening seen within the ethmoid air cells. Mastoid air cells: Clear. Calvarium: Within normal limits. Extracranial soft tissues: Within normal limits. IMPRESSION: No evidence of diffusion signal abnormalities to suggest acute infarct, recent ischemia, or recent ictal focus. No abnormal areas of enhancement. Nonspecific small scattered areas of T2 and FLAIR signal hyperintensity measuring a few millimeters are seen in the supratentorial white matter most commonly due to chronic mild microvascular ischemic changes. Differential considerations include sequelae of migraines; prior parenchymal injury from infectious or inflammatory/demyelinating process; vasculopathy. RPTAT: AADD .Dov Ambrosio MD, MD Date Time Electronically viewed and signed by .Dov Ambrosio MD, MD on 01/27/2017 23:15 .B/ CC: ALDO BOLANOS DO SANYA JEAN BAPTISTE January 28, 2017 14:12
--- NOTE | 2017-01-28 14:13 | RADRPT ---
PROCEDURE: US Carotids. CLINICAL INDICATION: bruit , syncope TECHNIQUE: Multiple sonographic of the carotid bifurcation region and vertebral arteries were obta ined utilizing swift scale, duplex and color-flow imaging. The images were reviewed on a PACS worksta tion. COMPARISON: No prior studies are available for comparison. FINDINGS: Evaluation of the right carotid bifurcation region reveals no significant calcific atherosclerotic d isease. Evaluation of the left carotid bifurcation region reveals no significant calcific atherosclerotic di sease. There is antegrade flow within the vertebral arteries bilaterally. RIGHT CAROTID MEASUREMENTS: Common Carotid Sewasa28.4 (cm/sec) Internal Carotid Artery - dhybfbhj21.3 (cm/sec) Internal Carotid Artery - mid53.5 (cm/sec) Internal Carotid Artery - bsybnm97.3 (cm/sec) Internal Carotid/Common Carotid1.05 LEFT CAROTID MEASUREMENTS: Common Carotid Nixhxy34.3 (cm/sec) Internal Carotid Artery - neettkrb11.9 (cm/sec) Internal Carotid Artery - mid59.4 (cm/sec) Internal Carotid Artery - .8 (cm/sec) Internal Carotid/Common Carotid1.02 RPTAT: AA IMPRESSION: No evidence for hemodynamically significant stenosis in the bilateral internal carotid arteries - va lidated velocity measurements with angiographic measurements, velocity criteria are extrapolated fro m diameter data as defined by the Society of Radiologists in Ultrasound Consensus Conference Radiolo gy 2003; 229;340-346. This study does indirectly reference the measurement of the distal ICA diamet er as the denominator for stenosis measurement. Normal antegrade flow in the vertebral arteries bilaterally. .Alireza Roldan MD, Date Time Electronically viewed and signed by .Alireza Roldan MD, MD on 01/28/2017 14:13 .S/
--- NOTE | 2017-01-28 20:13 | CONS ---
Date/Time of Note Date/Time of Note DATE: 01/28/17 TIME: 20:08 Consult Date/Type/Reason Admit Date/Time January 27, 2017 at 17:58 Initial Consult Date Type of Consultation: neurology Subjective Pt had 2 near syncopal episodes today. Positive orthostatic BP drop Objective Vital Signs Date Time Temp Pulse Resp B/P Pulse Ox O2 Delivery O2 Flow Rate FiO2 01/28/17 19:56 97.9 65 18 111/77 97 01/27/17 20:00 Room Air 01/27/17 11:06 2 Intake and Output 01/27/17 01/27/17 01/28/17 15:00 23:00 07:00 Intake Total 1275 ml Balance 1275 ml Results/Medications Result Diagram: 01/28/17 0612 01/28/17 0642 Results 24 hrs Laboratory Tests Test 01/28/17 00:40 01/28/17 01:45 01/28/17 06:12 01/28/17 06:42 Urine Color LT. YELLOW Urine Clarity CLEAR Urine pH 7.0 Urine Specific [place] <1.005 L Urine Ketones NEGATIVE Urine Nitrite NEGATIVE Urine Bilirubin NEGATIVE Urine Urobilinogen 0.2 E.U./dL Urine Leukocyte Esterase NEGATIVE Urine Hemoglobin NEGATIVE Urine Glucose NEGATIVE Urine Total Protein NEGATIVE Urine Opiates Screen NEGATIVE Urine Barbiturates NEGATIVE Urine Amphetamines Screen NEGATIVE Urine Benzodiazepines Screen NEGATIVE Urine Cocaine Screen NEGATIVE Urine Cannabinoids NEGATIVE Troponin I < 0.012 White Blood Count 4.4 L Red Blood Count 4.21 Hemoglobin 13.7 Hematocrit 39.5 Mean Corpuscular Volume 93.8 Mean Corpuscular Hemoglobin 32.5 Mean Corpuscular Hemoglobin Concent 34.7 Red Cell Distribution Width 12.0 Platelet Count 163 Mean Platelet Volume 10.6 H Neutrophils % 46.8 Lymphocytes % 37.6 Monocytes % 10.0 Eosinophils % 5.2 Basophils % 0.2 Nucleated Red Blood Cells % 0.0 Neutrophils # 2.1 Lymphocytes # 1.7 Monocytes # 0.4 Eosinophils # 0.2 Basophils # 0.0 Nucleated Red Blood Cells # 0.0 Sodium Level 135 Potassium Level 4.4 Chloride Level 106 Carbon Dioxide Level 25 Anion Gap 8 Blood Urea Nitrogen 10 Creatinine 0.73 Glucose Level 94 Hemoglobin A1c 5.0 Calcium Level 8.8 Magnesium Level 2.0 Triglycerides Level 70 Cholesterol Level 161 LDL Cholesterol, Calculated 103 HDL Cholesterol 44 Cholesterol/HDL Ratio 3.6 Thyroid Stimulating Hormone (TSH) 1.170 Medications Current Medications Sodium Chloride (NS) 1,000 ml @ 125 mls/hr Q8H IV Last administered on 13:20; Admin Dose 125 MLS/HR; Start 01/27/17 at 20:00 Sertraline HCl (Zoloft) 100 mg HS PO Last administered on 01/27/17 23:24; Admin Dose 100 MG; Start 01/27/17 at 22:00 Atorvastatin Calcium (Lipitor) 10 mg HS PO ; Start 01/28/17 at 21:00 Assessment/Plan Chief Complaint/Hosp Course PHYSICAL EXAMINATION: GENERAL: Not in acute distress, lying in bed. HEENT: Normocephalic, atraumatic head. NECK: No carotid bruits. No thyromegaly. LUNGS: Clear to auscultation bilaterally. CARDIAC: Normal cardiac rhythm and sounds. ABDOMEN: Soft, nontender. EXTREMITIES: No cyanosis, clubbing or edema. NEUROLOGIC: She is awake, alert and oriented x3 with fluent speech. Cranial nerve examination shows intact visual ramos bilaterally. Pupils reactive to light from 4 to 2 mm bilaterally. Extraocular movements intact without nystagmus. Symmetrical face. Preserved facial strength and sensation. Tongue is in midline. Palate elevates symmetrically. Motor strength examination seemed to be intact in all extremities. Normal bulk, tone. Sensory examination intact to light touch, pain and vibratory sense. Deep tendon reflexes 2+ upper extremities, 3+ lower extremities. Downgoing toes bilaterally. Coordination preserved on ckuptz-qf-vtptna testing. No dysmetria or tremor. Gait normal IMPRESSION: Multiple syncopal episodes in last 2 weeks, not positional, preceded with short-lasting presyncope. Orthostatic. No dehydration on Bun/Cr ratio. May be dysautomonia? she is on telemetry. All possible dysrhythmias would be picked up. Imaging of the brain and vasculature of the brain and neck was normal. I do not think that episodes reflect seizures. I do not think we need any further workup for seizures. Accounts Receivable Representative saw pt, report pending. Tilt table testing?? not sure if needed, i will leave for galvanometer assembler. Problems: ALXEUS FERNANDES MD January 28, 2017 20:13
--- NOTE | 2017-01-28 20:32 | RADRPT ---
Echocardiogram Report Patient Name: BONY DAI Gender: Female Date: 1950 Study Date: 28-Jan-2017 Allied Health Professional: Colleen Hu [facility] Location: 5547 Ref. Physician: ALDO BOLANOS Quality: Good Procedures: Transthoracic echocardiogram with complete 2D, M-Mode, and doppler examination. Indications: Chest Pain. 2D/M Mode Doppler Measurement Value Normal Ranges Measurement Value Normal Ranges LVIDd 2D 4.0 3.5 - 5.6 cm AV Peak Travis 1.2 m/sec LVIDs 2D 2.9 2.1 - 4.1 cm AV Peak PG 5.4 mmHg LVPWd 2D 1.0 0.6 - 1.1 cm AI Peak PG 45.0 mmHg IVSd 2D 1.1 0.6 - 1.1 cm AI Peak [place] 3.4 m/sec AoR Diam 2D 2.4 2.0 - 3.7 cm AI PHT 1165.1 msec EDV 2D 68.3 cm3 LVOT Peak [place] 0.8 m/sec ESV 2D 23.8 cm3 LVOT Peak PG 2.9 mmHg LA Dimen 2D 3.5 2.3 - 4.0 cm MV E Peak [place] 1.2 m/sec MV A Peak [place] 1.2 m/sec MV E/A 1.0 MV Decel Time 306 msec MV Decel [place] 4 MV E/A 1.0 Findings Left Ventricle: Normal left ventricular systolic function. Normal left ventricular cavity size. Mild concentric left ventricular hypertrophy. Ejection fraction is visually estimated at 5560 %. Tissue Doppler/Mitral Doppler indices are consistent with impaired relaxation (Stage I diastolic dysfunction). Right Ventricle: Normal right ventricular size. Normal right ventricular systolic function. Left Atrium: The left atrium is normal in size. Right Atrium: The right atrium is normal in size. Mitral Valve: Normal appearance and function of the mitral valve with trace physiologic regurgitation. Aortic Valve: Aortic cusps appear mildly calcified. Mild to moderate aortic valve regurgitation. Tricuspid Valve: Normal appearance of the tricuspid valve. Unable to obtain RVSP due to minimal presence of tricuspid regurgitation. Pulmonic Valve: Pulmonic valve not well visualized. Pericardium: Normal pericardium with no significant pericardial effusion. Aorta: Normal aortic root. IVC: Normal size and normal respiratory collapse consistent with normal right atrial pressure. Conclusions 1.Normal left ventricular systolic function. Normal left ventricular cavity size. Mild concentric left ventricular hypertrophy. Ejection fraction is visually estimated at 55-60 %. Tissue Doppler/Mitral Doppler indices are consistent with impaired relaxation (Stage I diastolic dysfunction). 2.Normal appearance and function of the mitral valve with trace physiologic regurgitation. 3.Aortic cusps appear mildly calcified. Mild to moderate aortic valve regurgitation. 4.Normal appearance of the tricuspid valve. Unable to obtain RVSP due to minimal presence of tricuspid regurgitation. Electronically Signed By: Gabriel Mclain 28-Jan-2017 20:32:18 -0700 Patient Name: BONY DAI Study Date: 28-Jan-2017 [id number]
[2017-01-28] MEDS ORDERED: ATORVASTATIN 20 MG TAB PO SCH (21:00)
[2017-01-28] MEDS: SERTRALINE 100 MG TAB PO SCH (21:39)
[2017-01-29] VITALS (11 sets, daily range): BP systolic 105–142; BP diastolic 57–74; PULSE 53–69; RESP 18
[2017-01-29] MEDS: SOD CHLORIDE 0.9% 1,000 ML IV SCH ×3 (05:29→15:06)
--- NOTE | 2017-01-29 06:57 | CONS ---
DATE OF ADMISSION: 01/27/2017 DATE OF CONSULTATION: 01/28/2017 REASON FOR CONSULTATION: Chest pain, assess for acute coronary syndrome. REQUESTING PHYSICIAN: Dr. Jean Baptiste from the hospitalist service. HISTORY OF PRESENT ILLNESS: Ms. Herman is a 66-year-old female with a history of known iliac domingo ry aneurysms, dyslipidemia who initially presented with recurrent episodes of syncopal episode. Per patient, she has a burning sensation that starts in her feet and then radiates up through her body and under her left arm with a questionable left-sided chest pain, then beings to see black spots, fe els dizzy, legs begin to shake and she passes out. Per patient, she has had multiple episodes 2 rickie es per day for the last 1 to 2 weeks. Upon arrival, temperature 98.8, blood pressure 111/78, pulse 56, respiratory rate 20, saturating 98%. The patient's labs revealed white count 5.2, hemoglobin 13 .0, platelet count 157. Sodium 133, potassium 3.8, creatinine 0.7, BUN 12. Troponin negative. BNP of 75. INR of 1.0. Tox screen negative. UA negative. The patient underwent a CT, CTA revealing bilateral common iliac aneurysms, no aortic aneurysm or dissection. A brain MRI revealing nonspeci fic small scattered T2 and FLAIR signal ____ measuring a few millimeters seen in supratentorial whit e matter most commonly due to chronic mild microvascular ischemic changes. The patient underwent a chest x-ray revealing subsegmental atelectasis in bilateral lower lobes. A neck MRA revealing no ev idence of stenosis in the extracranial circulation. A brain MRI with MRA revealing a normal MRA of the brain and a carotid Doppler study revealing no evidence for hemodynamically significant stenosis in the bilateral internal carotid arteries. The patient's electrocardiogram revealed sinus bradyca rdia, rate 54, normal axis, normal intervals and borderline anterior R wave progression. The patien t was subsequently admitted to the floor and since admit to the floor, has been monitored on telemet ry revealing sinus rhythm with some episodes of sinus reji to a high of 50s and as low as 47 per te lemetry monitor. The patient at this time denies chest pain. PAST MEDICAL HISTORY: As above in HPI. MEDICATIONS CURRENTLY IN HOSPITAL: 1. Lipitor 10 mg at bedtime. 2. Zoloft 100 mg at bedtime. 3. IV fluid hydration at 125 mL an hour. ALLERGIES: NO KNOWN DRUG ALLERGIES. SOCIAL HISTORY: No tobacco, ETOH or illicit drug use. FAMILY HISTORY: No history of cardiac or early CAD. REVIEW OF SYSTEMS: As above in HPI. CONSTITUTIONAL: No fevers, chills. PULMONARY: No current shortness of breath. CARDIOVASCULAR: No current chest pain, but chest pain during the syncopal episodes. GASTROINTESTINAL: No vomiting. GENITOURINARY: No hematuria. MUSCULOSKELETAL: Degenerative joint disease. PSYCHIATRIC: The patient denies depression. NEUROLOGIC: No documented history of CVA. PHYSICAL EXAMINATION VITAL SIGNS: Temperature 97.4, blood pressure 107/56, pulse 76, respiratory rate 18, saturating ___ _%. GENERAL: The patient is alert, awake, in no acute distress. NECK: JVP approximately 9 cm water. CHEST: Fair air movement throughout. HEART: Regular rate and rhythm. Normal S1, S2, I/ systolic murmur, nondisplaced PMI. ABDOMEN: Positive bowel sounds, soft. EXTREMITIES: No pitting edema, 1+ pulses bilaterally posterior tibial. LABORATORY DATA: As above in HPI, with most recent from today, sodium 135, potassium 4.4, creatinin e 0.7, BUN 10. White blood cell count 4.4, hemoglobin 13.7, platelet count 163. Tox screen negativ e. IMAGING STUDIES: As above in HPI. No further imaging studies for my review at this time. ECG: As above in HPI. No further electrocardiograms for my review at this time. IMPRESSION: 1. Chest pain during syncopal episodes, assess for acute coronary syndrome. 2. Syncope, rule out cardiac etiology. 3. Possible orthostatic hypotension. 4. Psychiatric disorder. 5. Dyslipidemia. 6. Bradycardia. RECOMMENDATIONS: 1. At this time, would maintain patient on telemetry monitoring to follow rhythm and rate control c losely. 2. The patient is status post TSH revealing normal levels. 3. We will follow up the patient's 2D echo for assessment of ejection fraction, wall motion and any major valve abnormalities. 4. The patient has 3 negative troponins, although last 2 were drawn less than 6 hours apart. There fore, we will draw 1 additional troponin to assure the patient's chest pain is not due to acute tray nary syndrome versus acute myocardial infarction. 5. Continue to check serial EKGs to assess for any significant ongoing changes. 6. Ongoing neurologic evaluation. 7. Follow the patient's orthostatics, continue IV fluid hydration and for ongoing orthostasis we wi ll thereafter consider Florinef and/or midodrine. 8. ____. For recurrent episodes of chest pain, we will consider cardiac stress testing. Thank you for allowing me to take part in the care of this patient. I will continue to follow along very closely with you. Further recommendations will be made as the patient progresses through her inpatient hospital clinic al course. Dictated By: ROSANGELA MAR/LATONIA Conf#: [id number] DID#: [id number] CC: SANYA JEAN BAPTISTE MD;*End*
[2017-01-29 07:32] LABS: ADD SCAN DIFF NO
[2017-01-29 07:37] LABS: BASOPHILS % 0.4 % (0.0-2.0); EOSINOPHILS # 0.2 10^3/ul (0.0-0.5); EOSINOPHILS % 4.4 % (0.0-7.0); HEMATOCRIT 42.2 % (37.0-47.0); HEMOGLOBIN 14.4 g/dl (12.0-16.0); LYMPHOCYTES # 2.2 10^3/ul (0.8-2.9); MEAN CORPUSCULAR HEMOGLOBIN 32.7 pg (29.0-33.0); MEAN CORPUSCULAR HGB CONC 34.1 g/dl (32.0-37.0); MEAN CORPUSCULAR VOLUME 95.9 fl (82.0-101.0); MEAN PLATELET VOLUME 10.6 fl (7.4-10.4); MONOCYTE # 0.4 10^3/ul (0.3-0.9); MONOCYTES % 7.9 % (0.0-11.0); NEUTROPHIL # 2.1 10^3/ul (1.6-7.5); NEUTROPHILS % 42.9 % (39.0-77.0); PLATELET COUNT 175 10^3/UL (140-415)
[2017-01-29 08:07] LABS: CHOLESTEROL 182 mg/dl (100-200); HDL CHOLESTEROL 45 mg/dl (35-98); TRIGLYCERIDES 100 mg/dl (0-149)
[2017-01-29 08:08] LABS: POTASSIUM 4.7 mmol/L (3.5-5.1)
[2017-01-29 08:10] LABS: CREATININE 0.69 mg/dl (0.44-1.00)
[2017-01-29 08:11] LABS: CALCIUM 9.3 mg/dl (8.4-10.2)
[2017-01-29 08:22] LABS: TROPONIN-I < 0.012 ng/ml (0.00-0.12)
--- NOTE | 2017-01-29 10:33 | CONS ---
Date/Time of Note Date/Time of Note DATE: 01/29/17 TIME: 10:26 Assessment/Plan Assessment/Plan Chief Complaint/Hosp Course IMPRESSION: 1. Chest pain during syncopal episodes, assess for acute coronary syndrome.- negative troponin x 3/NL EF by echo. No sig valve abnl 2. Syncope, rule out cardiac etiology. 3. Possible orthostatic hypotension. 4. Psychiatric disorder. 5. Dyslipidemia.-LDL 103, HDL 44 6. Bradycardia.- in 50's mainly Recc: -Tele -Continue current statin therapy -Ongoing neuro work-up -Lexiscan stress test today Problems: Consultation Date/Type/Reason Admit Date/Time January 27, 2017 at 17:58 Initial Consult Date 01/28/2017 Type of Consultation: cardiology Reason for Consultation Chest pain/syncope Referring Provider: SANYA JEAN BAPTISTE Exam/Review of Systems Vital Signs Vitals Vital Signs Date Time Temp Pulse Resp B/P Pulse Ox O2 Delivery O2 Flow Rate FiO2 01/29/17 10:20 57 113/65 105/67 112/68 01/29/17 08:11 98.0 18 98 01/27/17 20:00 Room Air 01/27/17 11:06 2 Intake and Output 01/28/17 01/28/17 01/29/17 15:00 23:00 07:00 Intake Total 125 ml 1555 ml 1875 ml Balance 125 ml 1555 ml 1875 ml Exam Review of Systems: CONSTITUTIONAL: No fevers, chills. PULMONARY: No sob CARDIOVASCULAR: No chest pain/palpitations GASTROINTESTINAL: No nausea/vomiting. GENITOURINARY: No hematuria/dysuria. MUSCULOSKELETAL: No myagias/arthalgias. PSYCHIATRIC: The patient denies depression. NEUROLOGIC: No weakness Constitutional: alert, oriented Psych: no complaints Head: normocephalic ENMT: mucosa pink and moist Neck: jvd (8 cm water), supple Respiratory: clear to auscultation Cardiovascular: regular rate and rhythm Gastrointestinal: non-tender, soft Extremities: edema (none) Neurological: other (No focal deficits) Results Result Diagram: 01/29/17 0651 01/29/17 0651 Results 24 hrs Laboratory Tests Test 01/29/17 06:51 White Blood Count 5.0 Red Blood Count 4.40 Hemoglobin 14.4 Hematocrit 42.2 Mean Corpuscular Volume 95.9 Mean Corpuscular Hemoglobin 32.7 Mean Corpuscular Hemoglobin Concent 34.1 Red Cell Distribution Width 12.0 Platelet Count 175 Mean Platelet Volume 10.6 H Neutrophils % 42.9 Lymphocytes % 44.0 Monocytes % 7.9 Eosinophils % 4.4 Basophils % 0.4 Nucleated Red Blood Cells % 0.0 Neutrophils # 2.1 Lymphocytes # 2.2 Monocytes # 0.4 Eosinophils # 0.2 Basophils # 0.0 Nucleated Red Blood Cells # 0.0 Sodium Level 140 Potassium Level 4.7 Chloride Level 104 Carbon Dioxide Level 26 Anion Gap 15 # Blood Urea Nitrogen 8 Creatinine 0.69 Glucose Level 93 Calcium Level 9.3 Troponin I < 0.012 Triglycerides Level 100 Cholesterol Level 182 LDL Cholesterol, Calculated 117 HDL Cholesterol 45 Cholesterol/HDL Ratio 4.0 Medications Medications Current Medications Sodium Chloride (NS) 1,000 ml @ 125 mls/hr Q8H IV Last administered on 05:29; Admin Dose 125 MLS/HR; Start 01/27/17 at 20:00 Sertraline HCl (Zoloft) 100 mg HS PO Last administered on 01/28/17 21:39; Admin Dose 100 MG; Start 01/27/17 at 22:00 Atorvastatin Calcium (Lipitor) 10 mg HS PO Last administered on 01/28/17 21:39 ; Admin Dose 10 MG; Start 01/28/17 at 21:00 ROSANGELA RAMIREZ January 29, 2017 10:33
--- NOTE | 2017-01-29 11:41 | PN ---
Date/Time of Note Date/Time of Note DATE: 01/29/17 TIME: 11:36 Assessment/Plan VTE Prophylaxis VTE Prophylaxis Intervention: ambulation, SCD's Lines/Catheters IV Catheter Type (from Nrs): Peripheral IV Assessment/Plan Assessment/Plan 66-year-old female who presents with left chest/arm discomfort and recurrent syncopy 1 month now managed as follows: 1. Recurrent syncope likely associated with orthostasis based on vital signs * Repeat orthostatic vital signs today continues to show positive drop from going from sitting to standing * However the bradycardia also somewhat concerning * And no obvious source of the orthostasis is evident except SSRI therapy which patient has been on for at least 3 years 2. Chest pain : resolved. 3. Known Bilateral common iliac artery aneurysms with maximal diameters of 3.8 cm on the left and 2.1 cm on the right, without evidence for aneurysm rupture. 4. Chronic depression stable on Zoloft PLAN: * Continue telemetry monitoring and inpatient care for now * Patient is planned for a nuclear medicine stress test today to complete her workup, I however suspect this will be normal. * I have discussed with the patient, she has been educated on fall precautions, and it is my opinion that she hold off on the Zoloft for now and schedule a follow-up with her psychiatrist. However she is concerned because she has been taking this for 3 years, and it seems to help her depression quite well. Hence I will defer this decision to her and her psychiatrist. * Continue supportive care Subjective 24 Hr Interval Summary Free Text/Dictation Patient seen. Doing very well. Has had no further episodes. Has been very ambulatory around the hospital floors. Spoke with cardiology as well as the patient and her son in detail. Exam/Review of Systems Vital Signs Vitals Vital Signs Date Time Temp Pulse Resp B/P Pulse Ox O2 Delivery O2 Flow Rate FiO2 01/29/17 10:20 57 113/65 105/67 112/68 01/29/17 08:11 98.0 18 98 01/27/17 20:00 Room Air 01/27/17 11:06 2 Intake and Output 01/28/17 01/28/17 01/29/17 14:59 22:59 06:59 Intake Total 125 ml 1555 ml 1875 ml Balance 125 ml 1555 ml 1875 ml Exam No distress Psych: nl mood/affect Head: atraumatic, normocephalic Eyes: PERRL ENMT: mucosa pink and moist Neck: non-tender, supple, No jvd Respiratory: clear to auscultation, normal air movement, No crackles/rales, No labored breathing, No wheezing Cardiovascular: regular rate and rhythm, No murmurs/extra sounds Gastrointestinal: bowel sounds, non-tender, soft, surgical scars (Well healed and dry) Genitourinary - Female: other (Deferred) Musculoskeletal: nl extremities to inspection, No joint tenderness, No muscle weakness Extremities: normal pulses, No edema Neurological: nl mental status, nl speech, nl strength, No focal weakness Skin: No rash or lesions Results Result Diagram: 01/29/17 0651 01/29/17 0651 Results 24 hrs Laboratory Tests Test 01/29/17 06:51 White Blood Count 5.0 Red Blood Count 4.40 Hemoglobin 14.4 Hematocrit 42.2 Mean Corpuscular Volume 95.9 Mean Corpuscular Hemoglobin 32.7 Mean Corpuscular Hemoglobin Concent 34.1 Red Cell Distribution Width 12.0 Platelet Count 175 Mean Platelet Volume 10.6 H Neutrophils % 42.9 Lymphocytes % 44.0 Monocytes % 7.9 Eosinophils % 4.4 Basophils % 0.4 Nucleated Red Blood Cells % 0.0 Neutrophils # 2.1 Lymphocytes # 2.2 Monocytes # 0.4 Eosinophils # 0.2 Basophils # 0.0 Nucleated Red Blood Cells # 0.0 Sodium Level 140 Potassium Level 4.7 Chloride Level 104 Carbon Dioxide Level 26 Anion Gap 15 # Blood Urea Nitrogen 8 Creatinine 0.69 Glucose Level 93 Calcium Level 9.3 Troponin I < 0.012 Triglycerides Level 100 Cholesterol Level 182 LDL Cholesterol, Calculated 117 HDL Cholesterol 45 Cholesterol/HDL Ratio 4.0 Medications Medications Current Medications Sodium Chloride (NS) 1,000 ml @ 125 mls/hr Q8H IV Last administered on 05:29; Admin Dose 125 MLS/HR; Start 01/27/17 at 20:00 Sertraline HCl (Zoloft) 100 mg HS PO Last administered on 01/28/17 21:39; Admin Dose 100 MG; Start 01/27/17 at 22:00 Atorvastatin Calcium (Lipitor) 10 mg HS PO Last administered on 01/28/17 21:39 ; Admin Dose 10 MG; Start 01/28/17 at 21:00 Procedures Procedures PROCEDURE: US Carotids. CLINICAL INDICATION: bruit , syncope TECHNIQUE: Multiple sonographic of the carotid bifurcation region and vertebral arteries were obtained utilizing swift scale, duplex and color-flow imaging. The images were reviewed on a PACS workstation. COMPARISON: No prior studies are available for comparison. FINDINGS: Evaluation of the right carotid bifurcation region reveals no significant calcific atherosclerotic disease. Evaluation of the left carotid bifurcation region reveals no significant calcific atherosclerotic disease. There is antegrade flow within the vertebral arteries bilaterally. RIGHT CAROTID MEASUREMENTS: Common Carotid Artery 84.4 (cm/sec) Internal Carotid Artery - proximal 48.3 (cm/sec) Internal Carotid Artery - mid 53.5 (cm/sec) Internal Carotid Artery - distal 66.3 (cm/sec) Internal Carotid/Common Carotid 1.05 LEFT CAROTID MEASUREMENTS: Common Carotid Artery 80.3 (cm/sec) Internal Carotid Artery - proximal 76.9 (cm/sec) Internal Carotid Artery - mid 59.4 (cm/sec) Internal Carotid Artery - distal 63.8 (cm/sec) Internal Carotid/Common Carotid 1.02 RPTAT: AA IMPRESSION: No evidence for hemodynamically significant stenosis in the bilateral internal carotid arteries - validated velocity measurements with angiographic measurements, velocity criteria are extrapolated from diameter data as defined by the Society of Radiologists in Ultrasound Consensus Conference Radiology 2003 ; 229;340-346. This study does indirectly reference the measurement of the distal ICA diameter as the denominator for stenosis measurement. Normal antegrade flow in the vertebral arteries bilaterally. .Alireza Roldan MD, MD Date Time Electronically viewed and signed by .Alireza Roldan MD, MD on 01/28/2017 14: 13 .S/ CC: SANYA JEAN BAPTISTE BOLATITO M. January 29, 2017 11:41
[2017-01-29] MEDS ORDERED: REGADENOSON 0.4 MG/5 ML SYG ONE (13:03)
--- NOTE | 2017-01-29 14:23 | RADRPT ---
PROCEDURE: Lexiscan myocardial perfusion study CLINICAL INDICATION: 66 -year-old patient with syncope, complaining of chest pain. TECHNIQUE: Lexiscan 0.4 mg intravenously separate acquisition gated myocardial perfusion SPECT usi ng Tc 99m Myoview 29.2 mCi intravenously at stress and Tc-99m Myoview, 9.7 mCi intravenously at rest was performed using the rest/stress sequence. Poststress Myoview SPECT images were obtained in the supine position. COMPARISON: No prior studies. FINDINGS: Perfusion images reveal no evidence of perfusion defects. Lexiscan post stress gated SPECT images demonstrate no wall motion abnormalities. IMPRESSION: 1. Normal study with no evidence of perfusion defects or wall motion abnormalities. 2. The left ventricle ejection fraction at stress is 64%. A call report was made to Dr. Mclain 04/15/2022 p.m. on January 29, 2017. RPTAT: HH .Tasha Wilkinson MD, MD Date Time Electronically viewed and signed by .Tasha Wilkinson MD, on 01/29/2017 14:23 .L/
--- NOTE | 2017-01-29 14:40 | CARRPT ---
DATE OF PROCEDURE: 01/28/2017 LEXISCAN CARDIOLITE STRESS TEST, ELECTROCARDIOGRAM PORTION INDICATION: Chest pain, assess for ischemia. BASELINE VITAL SIGNS AND ELECTROCARDIOGRAM: Pulse 53, blood pressure 127/69. Electrocardiogram rev eals sinus bradycardia, rate of 53, normal axis, normal intervals, nonspecific ST-T abnormalities. PROCEDURE: The patient underwent standard Lexiscan infusion protocol over 10 seconds followed by ra diolabeled tracer. The patient's test was stopped due to completion of protocol. Maximal achieved blood pressure during the test 132/75. Maximal achieved heart rate during the test 89. ELECTROCARDIOGRAM FINDINGS: The patient did not develop any new Lexiscan-induced ST or T-wave mulligan es from baseline abnormalities. No documented PVCs. SYMPTOMS: The patient had no complaints of chest pain or shortness of breath during stress testing. IMPRESSION: 1. No Lexiscan-induced ST or T-wave changes from baseline abnormalities diagnostic of cardiac ische harshil. 2. No complaints of chest pain or shortness of breath during stress testing. 3. No documented premature ventricular contractions during stress testing. 4. Report of nuclear images to follow in a separate dictation. Dictated By: ROSANGELA MAR/LATONIA Conf#: [id number] DID#: [id number] CC: SANYA JEAN BAPTISTE MD;*EndCC*
[2017-01-29] MEDS ORDERED: LORAZEPAM 2 MG INJ IV ONE (15:00)
[2017-01-29] MEDS ORDERED: MIDO5TAB19 PO (18:08)
--- NOTE | 2017-01-29 18:11 | PDOCDIS ---
Discharge Instructions DIAGNOSIS Discharge Diagnosis: Orthostatic hypotension CONDITION Patient Condition: Stable HOME CARE INSTRUCTIONS: Special Diet: low fat/chol ACTIVITY: Activity Restrictions: Slowly Increase Activity Rest between Activity Activity Restrictions Comment: Fall precautions FOLLOW UP/APPOINTMENTS Appointments Followup with your primary doctor within the next 1-2 weeks. If you don't have one please let someone know, we can give you resources that may help you pick one. You may call Dr Dwight Story's office. he's accepting new patients Name, Degree: Dwight Story MD Specialty: Internal Medicine Comments: Office Address: [address] [place] [id number] Office Office You may also call your insurance company to assign one to you. Review your medication list with your nurse before leaving and if you need new prescriptions please let your nurse know. I may have made changes to your home medications or given you new prescriptions , please let your primary doctor know as well. Stay compliant with your medications and report any side effects to your PCP or pharmacist. Return to the ER if you have any concerns and cannot reach your doctors or call your insurance company, they usually have a nurse that can help you. REFERRALS Other Referrals Name, Degree: Gabriel Mclain MD Specialty: Cardiology Comments: Office Address: [id number] [place] [id number] Office Office Garbage Truck Driver: SANYA Cisse January 29, 2017 18:11
--- NOTE | 2017-01-29 18:18 | DS ---
Date/Time of Note Date/Time of Note DATE: 01/29/17 TIME: 18:17 Discharge Summary Admission/Discharge Info Admit Date/Time January 27, 2017 at 17:58 Discharge Date/Time Final Diagnosis 66-year-old female who presents with left chest/arm discomfort and recurrent syncopy 1 month now managed as follows: 1. Recurrent syncope likely associated with orthostasis based on vital signs 2. Chest pain : resolved. 3. Known Bilateral common iliac artery aneurysms with maximal diameters of 3.8 cm on the left and 2.1 cm on the right, without evidence for aneurysm rupture. 4. Chronic depression stable on Zoloft Patient Condition: Stable Hx of Present Illness This is a pleasant 66-year-old female who presents to emergency room after a syncopal episode while at the clinic. The patient reports that she has been having these episodes for about a month. The episodes status with numbness in her feet that travel up her body with some pressure like sensation in the amplitude of her left arm and she starts to see black spots she gets very dizzy and then she passes out for a few seconds. Luckily she has never falling and these episodes last all of about 5 seconds but she is lethargic for about 15-20 minutes after which she feels completely normal. She works as a longwall shearer operator but does not associate this with fumes from chemicals. Episodes are not associated with any one emotional state. She has had episodes while happy, and even sometimes when she is doing nothing at all. Episodes seem to be lasting longer per family and her recovery time seems to be getting longer as well. Had outpatient workup has included thyroid screening as well as a urinalysis. She has no history of strokes or heart attacks. There is no family history of similar. She has never fallen and hit her head. The only medication she takes on a regular basis is Lipitor and zoloft. . Hospital Course This very pleasant lady, 66 years old presented with recurrent episodes of syncope that lasted a few seconds. She was admitted for further workup. She was sent to us from her primary care doctor's office. She had a history of bilateral iliac aneurysms that were chronic and stable. She was admitted for a full workup. She underwent CT a of the chest abdomen and pelvis, MRI of the brain, MRA of the brain and neck, chest x-ray, carotid Doppler studies that all came back negative. She was also ruled out for an acute coronary syndrome with 3 sets of cardiac enzymes, and she underwent a nuclear medicine stress test for chest pain that was negative as well. Had 2D echocardiogram showed ejection fraction of 55-60% with mild to moderate aortic valve regurgitation and stage I diastolic dysfunction. The only significant findings while she was in the hospital was a 20 point drop in her systolic from 1 26 mmHg to 106 when going from a sitting to a standing position. However the scope was also not consistently ranged between 10 and 20 throughout her hospitalization. She was monitored on telemetry the whole time and she did have episodes of bradycardia however these were consistent and asymptomatic. She was finally diagnosed with orthostatic hypotension causing her episodes, and based on that she was started on low-dose midodrine 2.5 mg 3 times a day. Patient is also on SSRI Zoloft which she has been on for more than 3 years. SSRI sometimes associated with orthostatic hypotension and advised the patient to discuss with her psychiatrist if it is possible to evaluating off this medication or switching to a different one. The patient did reports very good response to the drug however, so I did not discontinue it. Also it will have to be tapered off. She has done well and is desirous of discharge at this time in my opinion the patient is stable for discharge she has been cleared by cardiology and neurology and I will go ahead and discharge her now. Comorbidities were also aggressively managed as per Med records. Patient at this time has been evaluated and examined in detail and is assessed to be in stable condition and ready for discharge. Home Meds Active Scripts Midodrine* (Midodrine*) 5 Mg Tablet, 2.5 MG PO TID for 30 Days, TAB Prov:ITASANYA 01/29/17 Reported Medications Sertraline Hcl* (Sertraline Hcl*) 100 Mg Tablet, 100 MG PO DAILY, #30 TAB 01/27/17 Atorvastatin Calcium* (Atorvastatin Calcium*) 20 Mg Tablet, 20 MG PO QHS, #30 TAB 01/27/17 Follow-up Plan Patient will follow up with her own primary care physician and also has been given information for Dr. Mclain office for follow-up as well. Primary Care Provider [facility] H.c Time spent on discharge: > 30 minutes Pending Labs Laboratory Tests Test 01/29/17 06:51 White Blood Count 5.010^3/ul (4.8-10.8) Red Blood Count 4.4010^6/ul (4.20-5.40) Hemoglobin 14.4g/dl (12.0-16.0) Hematocrit 42.2% (37.0-47.0) Mean Corpuscular Volume 95.9fl (82.0-101.0) Mean Corpuscular Hemoglobin 32.7pg (29.0-33.0) Mean Corpuscular Hemoglobin Concent 34.1g/dl (32.0-37.0) Red Cell Distribution Width 12.0% (11.5-14.5) Platelet Count 49913^3/UL (140-415) Mean Platelet Volume 10.6fl (7.4-10.4) Neutrophils % 42.9% (39.0-77.0) Lymphocytes % 44.0% (15.0-51.0) Monocytes % 7.9% (0.0-11.0) Eosinophils % 4.4% (0.0-7.0) Basophils % 0.4% (0.0-2.0) Nucleated Red Blood Cells % 0.0/100WBC (0.0-0.0) Neutrophils # 2.110^3/ul (1.6-7.5) Lymphocytes # 2.210^3/ul (0.8-2.9) Monocytes # 0.410^3/ul (0.3-0.9) Eosinophils # 0.210^3/ul (0.0-0.5) Basophils # 0.010^3/ul (0.0-0.1) Nucleated Red Blood Cells # 0.010^3/ul (0.0-0.0) Sodium Level 140mmol/L (135-144) Potassium Level 4.7mmol/L (3.5-5.1) Chloride Level 104mmol/L (97-110) Carbon Dioxide Level 26mmol/L (21-31) Anion Gap 15 (8-16) Blood Urea Nitrogen 8mg/dl (7-20) Creatinine 0.69mg/dl (0.44-1.00) Glucose Level 93mg/dl (70-220) Calcium Level 9.3mg/dl (8.4-10.2) Troponin I < 0.012ng/ml (0.00-0.12) Triglycerides Level 100mg/dl (0-149) Cholesterol Level 182mg/dl (100-200) LDL Cholesterol, Calculated 117mg/dl HDL Cholesterol 45mg/dl (35-98) Cholesterol/HDL Ratio 4.0SANYA BRIONES January 29, 2017 18:18
--- NOTE | 2017-01-29 21:28 | RADRPT ---
Vent Rate: 60 bpm RR Interval: 0 msec [place] Interval: 166 msec QRS Duration: 68 msec QT Interval: 420 msec QTC Interval: 420 msec P-R-T [place]: 29 - 43 - 48 degrees Normal sinus rhythm Normal ECG Electronically Signed By: Gabriel Mclain [id number]
== END 2017-01-29 18:37 | disposition home or self-care (01) | DRG 312 ==
LOC: E/R 10:54 → MS4 17:58
PROVIDERS: ADMIT Family Medicine; ATTEND Family Medicine
DX: R55 Syncope and collapse (principal); I72.3 Aneurysm of iliac artery; E87.1 Hypo-osmolality and hyponatremia; R00.1 Bradycardia, unspecified; I95.1 Orthostatic hypotension; R07.9 Chest pain, unspecified; F32.9 Major depressive disorder, single episode, unspecified; I35.1 Nonrheumatic aortic (valve) insufficiency; I71.4 Abdominal aortic aneurysm, without rupture; E78.5 Hyperlipidemia, unspecified
CPT/HCPCS: 36415; 70544; 70549; 70553; 71010; 71275; 75635; 78452; 80048; 80061; 80307; 81003; 82550; 82553; 83036; 83735; 83880; 84443; 84484; 85025; 85610; 85730; 93005; 93017; 93306; 93880; A9500; A9505; J2060; J2785; J7030; Q9967